=== PATIENT | female | born 1990 | race Caucasian/White ===

== ENCOUNTER 2021-02-24 07:40 | Emergency (ER) | payer MEDICAID, SELFPAY ==
--- NOTE | ~2021-02-24 | XR_ITS ---
EXAMINATION: XR ankle LT min 3V DATE: 02/24/2021 08:00 INDICATION: Pain after fall, initial encounter TECHNIQUE: Anteroposterior, lateral, mortise, and additional oblique view of the ankle were obtained. COMPARISON: 09/11/2014 FINDINGS: There is an acute, traumatic, nondisplaced, transverse fracture of the lateral malleolus be low the level of the tibial plafond. Ankle mortise is intact. There is lateral soft tissue swelling o f ankle. No additional acute osseous abnormality is identified. IMPRESSION: 1. Acute fracture of the lateral malleolus below the level of the tibial plafond. Reviewed, dictated and finalized at location A. E[facility] COMPENSATION EXAMINER IMPRESSION: 1. Acute fracture of the lateral malleolus below the level of the tibial plafon henrry
[2021-02-24 07:44] VITALS: BP 118/64; PULSE 98; RESP 14; TEMP 36.7; O2SAT 100
[2021-02-24] MEDS: HYDROcodone/acetaminophen (*CRX) 5-325 MG TABLET 1 TAB PO (08:14)
[2021-02-24] MEDS: ONDANSETRON HCL ODT 4 MG TABLET PO (08:54)
--- NOTE | 2021-02-24 09:06 | ED.LOWEXIN ---
HPI - Extremity Injury (Lower) General Chief Complaint: Extremity Injury, Lower Stated Complaint: L ankle injury Time Seen by Provider: 02/24/21 07:51 Source: patient History of Present Illness HPI Narrative: Patient was preparing punk for her children when she fell off onto her left ankle and felt a pop. She had immediate pain and came to the ER for evaluation. Pain is sharp, constant, worse with moving the lower extremity, no radiation. Reports has not been able to walk on it because it hurts too much. She denies any focal numbness or weakness. She denies striking her head she denies any low consciousness neck or back pain Related Data Allergies Allergy/AdvReac Type Severity Reaction Status Date / Time amoxicillin Allergy Severe hives and Verified 02/24/21 07:47 swelling Penicillins Allergy Unknown Swelling Verified 02/24/21 07:47 of Lip/Tongue/Throat Review of Systems Review of Systems: CONSTITUTIONAL: Denies fever, chills, or sweats. EYES: Denies visual changes, redness, or discharge. ENT: Denies rhinorrhea, congestion, sore throat, or otalgia. CARDIOVASCULAR: Denies chest pain, palpitations, or edema. RESPIRATORY: Denies cough or dyspnea. GASTROINTESTINAL: Denies abdominal pain, nausea, vomiting, or diarrhea. GENITOURINARY: Denies dysuria or hematuria. SKIN: Denies rash or itching. MUSCULOSKELETAL: Denies back pain, joint pain, or myalgia. NEUROLOGIC: Denies headache, numbness, dizziness, or weakness. PSYCHIATRIC: Denies anxiety or depression. All systems reviewed & are unremarkable except as noted in HPI and below PMFSH Past Medical History Medical History (Updated 02/24/21 @ 09:11 by Fabrizio Richardson MD) Patient denies significant medical history Social History Social History Alcohol intake: never Exam Narrative: GENERAL: Well-appearing, well-nourished, and in no acute distress. HEAD: Normocephalic, atraumatic. EYES: PERRLA and EOMI. ENT: Nares clear, no rhinorrhea or epistaxis. Mucous membranes moist. NECK: Supple. No masses. No JVD EXTREMITIES: Large swelling to the lateral aspect of the left ankle with diffuse ecchymoses there is tenderness over the lateral malleolus. There is limited range of motion of the left ankle due to edema and pain. Cap refill is less than 2 seconds sensation intact to light touch in the distal extremity SKIN: Warm, dry, no rash. NEURO: No focal deficits. Alert and oriented x3. PSYCH: Normal mood and affect. Course Reevaluation(s) Reevaluation #1: Image findings discussed with patient. Case discussed with orthopedics on-call. Patient follow-up with orthopedic team as an outpatient. Date: 02/24/21 Time: 09:06 Vital Signs Vital signs: Vital Signs Temperature 36.7 C 02/24/21 07:44 Pulse Rate 98 02/24/21 07:44 Respiratory Rate 14 02/24/21 07:44 Blood Pressure 118/64 02/24/21 07:44 Pulse Oximetry 100 02/24/21 07:44 Temperature 36.7 C 02/24/21 07:44 Pulse Rate 94 02/24/21 09:32 Respiratory Rate 18 02/24/21 09:32 Blood Pressure 120/72 02/24/21 09:32 Pulse Oximetry 99 02/24/21 09:32 MDM - Extremity Injury (Lower) MDM Narrative Medical decision making narrative: H&P as above, vss, pt looks clinically well, exam edema and ecchymosis to the lateral left ankle distal extremities neurovascularly intact, imaging with lateral malleolus fracture, additional labs/img considered, symptomatic relief available as needed, on reevaluation pt continues to looks clinically well. Suspect isolated fracture, dns neurovascular compromise, open fracture, dislocation. plan to tx/monitor as op w/ pcm f/u findings/plan discussed with pt, pt agree/comfortable with plan, return precautions given. Medication precautions given Imaging Data Radiologist's impression: Impressions Ankle X-Ray 02/24/21 08:02 IMPRESSION: 1. Acute fracture of the lateral malleolus below the level of the tibial plafond. Discharge Plan Discharge
[2021-02-24 09:32] VITALS: BP 120/72; PULSE 94; RESP 18; O2SAT 99
== END 2021-02-24 09:34 | disposition home or self-care (01) ==
PROVIDERS: Emergency Provider Emergency Medicine; PCP Family Medicine
DX: S82.62XA Displaced fracture of lateral malleolus of left fibula, initial encounter for closed fracture (principal); W06.XXXA Fall from bed, initial encounter
CPT/HCPCS: 29515; 73610; 99284; A9270